=== PATIENT | male | born 1950 | race Caucasian/White ===

== ENCOUNTER 2023-05-23 07:11 | Day surgery (SDC) | payer OTHER ==
[~2023-05-23] VITALS: Ht 190.5 cm; Wt 120.2 kg
[2023-05-23 08:10] VITALS: O2SAT 98
[2023-05-23] MEDS ORDERED: MIDAZOLAM HCL 5 MG/5 ML VIAL ONE (09:22)
[2023-05-23] MEDS ORDERED: MEPERIDINE 100 MG INJ. 100 MG/ML VIAL ONE (09:22)
[2023-05-23] MEDS ORDERED: BENZOCAINE 20% 0.5mL UD SPRAY MM ONE (09:26)
[2023-05-23 09:50] VITALS: TEMP 97.6
[2023-05-23 17:11] VITALS: BP_SYST 127; PULSE 94; RESP 15
== END 2023-05-23 12:05 | disposition home or self-care (01) ==
LOC: SDS 07:11 → SMU 07:14 → SDS 12:05
PROVIDERS: ATTEND Internal Medicine
DX: K74.60 Unspecified cirrhosis of liver (principal); I85.10 Secondary esophageal varices without bleeding; K29.50 Unspecified chronic gastritis without bleeding; K31.89 Other diseases of stomach and duodenum; Z79.899 Other long term (current) drug therapy
CPT/HCPCS: 43244; 99152; 43239; 88305; 88312; 88313; G0378; J2250; J2175